=== PATIENT | female | born 1975 | race Caucasian/White ===

== ENCOUNTER → 2016-11-03 | Outpatient (CLI) | payer BC ==
[2016-11-03 19:05] LABS: Follicle Stimulating Hormone 2.1 mIU/mL
== END | disposition home or self-care (01) ==
LOC: MMGSC 14:16
PROVIDERS: ATTEND Family Medicine
DX: N95.1 Menopausal and female climacteric states (principal)
CPT/HCPCS: 36415; 83001; 83002; 84439; 84443

== ENCOUNTER → 2017-01-03 | Outpatient (CLI) | payer BC ==
--- NOTE | 2017-01-05 08:56 | MM ---
Reason for exam: screening (asymptomatic). Last mammogram was performed 2 years and 9 months ago. Physical Findings: A clinical breast exam by your physician is recommended on an annual basis and results should be correlated with mammographic findings. MG 3D Screening Mammo W/Cad Bilateral CC and MLO view(s) were taken. Prior study comparison: April 18, 2014, bilateral MG screening mammo w CAD. September 26, 2013, right breast MG diagnostic mammo RT w CAD. The breast tissue is extremely dense which could obscure a lesion on mammography. Scattered regional punctate calcifications are unchanged, greater in the right breast. No significant changes when compared with prior studies. ASSESSMENT: Negative, BI-RAD 1 RECOMMENDATION: Routine screening mammogram of both breasts in 1 year.
== END | disposition home or self-care (01) ==
LOC: RADMAMWWP 13:44
PROVIDERS: ATTEND Family Medicine
DX: Z12.31 Encounter for screening mammogram for malignant neoplasm of breast (principal)
CPT/HCPCS: 77063; G0202

== ENCOUNTER → 2017-05-16 | Outpatient (CLI) | payer BC ==
[2017-05-16 18:57] LABS: ALT 22 U/L (9-52); AST 26 U/L (14-36); Albumin 4.5 g/dL (3.5-5.0); Alkaline Phosphatase 55 U/L (38-126); Anion Gap 11 mmol/L; Blood Urea Nitrogen 11 mg/dL (7-17); Calcium 9.9 mg/dL (8.4-10.2); Carbon Dioxide 28 mmol/L (22-30); Chloride 101 mmol/L (98-107); Creatine Kinase 83 U/L (30-135); Glucose 84 mg/dL (74-99); Potassium 3.7 mmol/L (3.5-5.1); Sodium 140 mmol/L (137-145); Total Bilirubin 0.3 mg/dL (0.2-1.3); Total Protein 7.4 g/dL (6.3-8.2)
[2017-05-16 18:59] LABS: Basophils % (A) 0 %; Eosinophils # (A) 0.1 k/uL (0-0.7); Eosinophils % (A) 2 %; HCT 38.8 % (34.0-46.0); HGB 12.1 gm/dL (11.4-16.0); Lymphocytes # (A) 0.8 k/uL (1.0-4.8); Lymphocytes % (A) 17 %; MCH 29.3 pg (25.0-35.0); MCHC 31.3 g/dL (31.0-37.0); MCV 93.8 fL (80.0-100.0); Mean Platelet Volume 7.3; Monocytes # (A) 0.3 k/uL (0-1.0); Monocytes % (A) 7 %; Neutrophils # (A) 3.3 k/uL (1.3-7.7); Neutrophils % (A) 73 %; Platelet Count 202 k/uL (150-450); RBC 4.14 m/uL (3.80-5.40); RDW 12.8 % (11.5-15.5); WBC 4.5 k/uL (3.8-10.6)
[2017-05-16 19:10] LABS: T4, Free (Free Thyroxine) 0.74 ng/dL (0.78-2.19)
[2017-05-17 01:06] LABS: Rheumatoid Factor 6 IU/mL (0-15)
[2017-05-17 01:15] LABS: Vitamin D 25 Hydroxy 20.2 ng/mL (30.0-100.0)
[2017-05-18 13:07] LABS: HLA B27 NEGATIVE
== END | disposition home or self-care (01) ==
LOC: MMGSC 15:29
PROVIDERS: ATTEND Family Medicine
DX: M25.50 Pain in unspecified joint (principal); R53.83 Other fatigue; M54.5 Low back pain; M79.1 Myalgia; R20.9 Unspecified disturbances of skin sensation
CPT/HCPCS: 36415; 80053; 82306; 82550; 82607; 84439; 84443; 85025; 86038; 86431; 86812; 87086

== ENCOUNTER → 2017-07-27 | Outpatient (CLI) | payer BC ==
--- NOTE | 2017-07-27 14:31 | MR ---
EXAMINATION TYPE: MR brain wo/w con DATE OF EXAM: 07/27/2017 COMPARISON: 03/16/2016 HISTORY: Headache TECHNIQUE: Multiplanar, multisequence images of the brain and brainstem is performed without and with IV contras t, utilizing 5 mL intravenous Gadavist . FINDINGS: Diffusion weighted images demonstrate no evidence of a recent infarct or other diffusion ab normality. There is no extra-axial fluid collection or significant white matter signal abnormality. The ventricular system and cisternal spaces are normal in size and appearance. The brain volume is age appropriate. Midline structures demonstrate normal morphology. The craniocervical junction appears within normal limits. Post contrast images demonstrate no abnormal enhancement. Changes of chronic sinusitis are noted. IMPRESSION: 1. No acute process. 2. Changes of mild chronic sinusitis.
== END | disposition home or self-care (01) ==
LOC: RADMRIMAIN 13:14
PROVIDERS: ATTEND Psychiatry & Neurology Neurology
DX: R51 Headache (principal); R20.2 Paresthesia of skin
CPT/HCPCS: 70553; A9581

== ENCOUNTER → 2017-09-09 | Outpatient (CLI) | payer BC | END | disposition home or self-care (01) | LOC: LABWHC1 08:20 | PROVIDERS: ATTEND Psychiatry & Neurology Neurology | DX: G62.9 Polyneuropathy, unspecified (principal) | CPT/HCPCS: 36415; 82607; 82947 ==

== ENCOUNTER → 2017-09-26 | Outpatient (CLI) | payer BC ==
--- NOTE | 2017-09-26 16:10 | MR ---
EXAMINATION TYPE: MR cervical spine wo con DATE OF EXAM: 09/26/2017 COMPARISON: NONE HISTORY: Pain, Tingling, Numbness. TECHNIQUE: Multiplanar, multisequence images of the cervical spine were acquired. C2-C3: No evidence for degenerative disc disease. No disc bulge/herniation or protrusion. No Canal stenosis. Foramina are patent bilaterally. C3-C4: No evidence for degenerative disc disease. No disc bulge/herniation or protrusion. No Canal stenosis. Foramina are patent bilaterally. C4-C5: No evidence for degenerative disc disease. No disc bulge/herniation or protrusion. No Canal stenosis. Foramina are patent bilaterally. C5-C6: Central disc bulging with mild effacement of the thecal sac but no canal stenosis or foraminal encroachment.. C6-C7: No evidence for degenerative disc disease. No disc bulge/herniation or protrusion. No Canal stenosis. Foramina are patent bilaterally. C7-T1: No evidence for degenerative disc disease. No disc bulge/herniation or protrusion. No Canal stenosis. Foramina are patent bilaterally. Cervical segments are intact. There is normal alignment. Cervical spinal cord is of normal signal. Craniovertebral junction relationships are within normal limits. Sagittal disc bulging at T3-T4. IMPRESSION: 1. There is mild central disc bulging C5-C6 with no canal stenosis or foraminal encroachment. No foca l herniation. 2. Sagittal disc bulging T3-T4 not included on the axial images.
== END | disposition home or self-care (01) ==
LOC: RADMRIMAIN 14:16
PROVIDERS: ATTEND Psychiatry & Neurology Neurology
DX: M50.222 Other cervical disc displacement at C5-C6 level (principal)
CPT/HCPCS: 72141

== ENCOUNTER → 2018-04-10 | Outpatient (CLI) | payer BC ==
--- NOTE | 2018-04-12 16:37 | MM ---
Reason for exam: screening (asymptomatic). Last mammogram was performed 1 year and 3 months ago. MG 3D Screening Mammo W/Cad Bilateral CC and MLO view(s) were taken. Prior study comparison: January 03, 2017, bilateral MG 3d screening mammo w/cad. April 18, 2014, bilateral MG screening mammo w CAD. The breast tissue is extremely dense which could obscure a lesion on mammography. There is a distortion in the left upper posterior breast seen on the MLO view. There are benign-appearing regional round bilateral breast calcifications. ASSESSMENT: Incomplete: need additional imaging evaluation, BI-RAD 0 RECOMMENDATION: Ultrasound of the left breast.
== END | disposition home or self-care (01) ==
LOC: RADMAMWWP 06:59
PROVIDERS: ATTEND Family Medicine
DX: Z12.31 Encounter for screening mammogram for malignant neoplasm of breast (principal)
CPT/HCPCS: 77063; 77067

== ENCOUNTER → 2018-04-20 | Outpatient (CLI) | payer BC ==
--- NOTE | 2018-04-22 11:45 | USB ---
Reason for exam: additional evaluation requested from abnormal screening. Physical Findings: Nurse Summary: a left breast palpable mass at 11o'clock 0.5 x 1 cm movable and tender. US Breast Workup Limited LT Left limited breast ultrasound including focal area of concern, retroareolar and axilla demonstrates No solid or cystic lesion seen including area of concern with BB marker. Dense tissue seen throughout. These results were verbally communicated with the patient and result sheet given to the patient on 04/20/18. ASSESSMENT: Probably benign, BI-RAD 3 RECOMMENDATION: Follow-up diagnostic mammogram of the left breast in 6 months.
== END | disposition home or self-care (01) ==
LOC: RADUSWWP 13:43
PROVIDERS: ATTEND Family Medicine
DX: R92.8 Other abnormal and inconclusive findings on diagnostic imaging of breast (principal)

== ENCOUNTER → 2018-11-14 | Outpatient (CLI) | payer BC ==
--- NOTE | 2018-11-14 09:04 | MM ---
Reason for exam: follow-up at short interval from prior study. Last mammogram was performed 7 months ago. Physical Findings: Nurse did not find any significant physical abnormalities on exam. MG 3D Diag Mammo W/Cad LT CC, MLO, and ML view(s) were taken of the left breast. Prior study comparison: April 10, 2018, bilateral MG 3d screening mammo w/cad. January 03, 2017, bilateral MG 3d screening mammo w/cad. The breast tissue is extremely dense which could obscure a lesion on mammography. Finding: There are stable round, diffuse/scattered calcifications in the lower outer quadrant of the left breast. No significant changes in finding since April 10, 2018 and January 03, 2017. These results were verbally communicated with the patient and result sheet given to the patient on 11/14/18. ASSESSMENT: Benign, BI-RAD 2 RECOMMENDATION: Return to routine screening mammogram schedule for both breasts. Back on schedule.
== END | disposition home or self-care (01) ==
LOC: RADMAMWWP 08:10
PROVIDERS: ATTEND Family Medicine
DX: N63.20 Unspecified lump in the left breast, unspecified quadrant (principal); K59.00 Constipation, unspecified; R19.7 Diarrhea, unspecified
CPT/HCPCS: 77061; 77065; 87045; 87046; 87324; 87328; 87329

== ENCOUNTER → 2020-03-17 | Outpatient (CLI) | payer BC ==
--- NOTE | 2020-03-17 10:31 | MM ---
Reason for exam: additional evaluation requested from prior study. Last mammogram was performed 1 year and 4 months ago. Physical Findings: Nurse did not find any significant physical abnormalities on exam. MG 3D Diag Mammo W/Cad [facility] Bilateral CC and MLO view(s) were taken. Prior study comparison: November 14, 2018, left breast MG 3d diag mammo w/cad LT. April 10, 2018, bilateral MG 3d screening mammo w/cad. The breast tissue is heterogeneously dense. This may lower the sensitivity of mammography. No significant new findings when compared with previous films. These results were verbally communicated with the patient and result sheet given to the patient on 03/17/20. ASSESSMENT: Benign, BI-RAD 2 RECOMMENDATION: Routine screening mammogram of both breasts in 1 year.
== END | disposition home or self-care (01) ==
LOC: RADMAMWWP 07:18
PROVIDERS: ATTEND Family Medicine
DX: R92.8 Other abnormal and inconclusive findings on diagnostic imaging of breast (principal)
CPT/HCPCS: 77062; 77066

== ENCOUNTER → 2020-05-20 | Outpatient (CLI) | payer BC ==
[2020-05-21 03:14] LABS: Gliadin AB IgA, Deaminated NEGATIVE (NEGATIVE); Gliadin AB IgA, Unit <0.2 U/mL; Gliadin AB IgG, Deaminated NEGATIVE (NEGATIVE)
[2020-05-21 03:45] LABS: ALT 45 U/L (8-44); AST 34 U/L (13-35); African American GFR (CKD) 119.6 (60.0-200.0); Albumin/Globulin Ratio 1.72 (1.60-3.17); Alkaline Phosphatase 48 U/L (41-126); BUN/Creat Ratio 15.71 Ratio (12.00-20.00); C Reactive Protein <0.4 mg/dL (0.0-0.8); Calcium 9.8 mg/dL (8.7-10.3); Carbon Dioxide 24.9 mmol/L (21.6-31.8); Chloride 102 mmol/L (96-109); Globulin 2.5 g/dL (1.6-3.3); Glucose 78 mg/dL (70-110); Non-African American GFR(CKD) 103.2 (60.0-200.0); Potassium 3.9 mmol/L (3.5-5.5); Sodium 139 mmol/L (135-145); Total Bilirubin 0.4 mg/dL (0.3-1.2); Total Protein 6.8 g/dL (6.2-8.2)
[2020-05-21 04:23] LABS: HCT 39.9 % (37.2-46.3); HGB 12.5 g/dL (12.0-15.0); MCH 30.9 pg (27.0-32.0); MCHC 31.3 g/dL (32.0-37.0); MCV 98.5 fL (80.0-97.0); Mean Platelet Volume 11.4 fL (9.5-12.2); Platelet Count 232 X 10*3/uL (140-440); RBC 4.05 X 10*6/uL (4.10-5.20); RDW 13.2 % (11.5-14.5); WBC 5.68 X 10*3/uL (4.50-10.00)
[2020-05-21 07:24] LABS: Erythrocyte Sedimentation Rate 6 mm/Hr (0-20)
== END | disposition home or self-care (01) ==
LOC: LABWHC1 15:02
PROVIDERS: ATTEND Physician Assistant
DX: R19.7 Diarrhea, unspecified (principal)
CPT/HCPCS: 36415; 80053; 83516; 85027; 85652; 86140

== ENCOUNTER 2020-05-28 08:07 | Day surgery (SDC) | payer BC ==
[2020-05-25 12:40] VITALS: BMI 25.0
[~2020-05-28 08:07] MED LIST: LACTATED RINGERS 1,000 ML IV SCH; LIDOCAINE 1% (10MG/ML) FOR IV START INTRADERMA PRN
[2020-05-28 08:37] VITALS: TEMP 98.7
[2020-05-28] MEDS ORDERED: PROPOFOL 10 MG/ML 20 ML VIAL IV ONE (09:57)
[2020-05-28 10:43] VITALS: RESP 16
--- NOTE | 2020-05-28 10:48 | P.PCN ---
Date of Procedure: 05/28/20 Description of Procedure: Brief history: Patient is a pleasant 45-year-old female presenting for outpatient EGD and colonoscopy for evaluation of heartburn and diarrhea. Patient reports frequent heartburn 3-4 times per week. She has frequent loose bowel movements with associated urgency and episodes of incontinence. She also complains of nighttime bowel movements. Procedure performed: Esophagogastroduodenoscopy with biopsy Colonoscopy with biopsy Estimated blood loss: Minimal. Preoperative diagnosis: Heartburn, diarrhea Anesthesia: [facility] [place] Procedure: After informed consent was obtained from the patient was brought into the endoscopy unit and IV sedation was administered by anesthesia under continuous monitoring. Initially upper endoscopy was done. The Olympus GF 190 video endoscope was inserted into the mouth and esophagus intubated without any difficulty and was gradually advanced into the stomach and duodenum and carefully examined. The bulb and second part of the duodenum appeared normal with biopsies taken. The scope was then withdrawn into the stomach adequately insufflated with air and upon careful examination the antrum and body, cardia and fundus appeared normal, except for some mild punctate erythema in the antrum body suggestive of gastritis with biopsies taken. The scope was then withdrawn into the esophagus. The GE junction was located at 36 cm to the incisors and biopsied. A small 1 cm hiatal hernia was noted . It appeared regular with no erythema erosions or ulcerations. Rest of the esophagus appeared normal. Patient tolerated the procedure well. At this time the patient continued to remain sedation. Initial digital rectal examination was normal. Olympus CF 190 video colonoscope was then inserted into the rectum and gradually advanced to the cecum without any difficulty. Careful examination was performed as the scope was gradually being withdrawn. The prep was excellent. The cecum, ascending colon, transverse colon, descending colon, sigmoid colon and rectum appeared normal, With biopsies of the right colon, left colon and a normal-appearing terminal ileum. Retroflexion was performed in the rectum and no lesions were noted, Low-grade internal. Patient tolerated the procedure well. Impression: 1. Mild gastritis. Biopsies of the duodenum, antrum body and GE junction. Small hiatal hernia. 2. Normal-appearing colon from rectum to cecum with normal-appearing terminal ileum and biopsies taken of the terminal ileum, right colon and left colon. Low-grade internal hemorrhoids. Recommendations: Findings of this examination were discussed with the patient as well as her family. Okay to resume diet. Okay to resume medications. Await pathology from biopsies. Follow up in the GI clinic as scheduled for results of biopsies and further management
[2020-05-28 11:02] VITALS: PULSE 58
[2020-05-28 11:03] VITALS: BP 120/77
== END 2020-05-28 11:47 | disposition home or self-care (01) ==
LOC: ORWHC2ENDO 08:07
PROVIDERS: ATTEND Internal Medicine
DX: K31.9 Disease of stomach and duodenum, unspecified (principal); K44.9 Diaphragmatic hernia without obstruction or gangrene; K64.8 Other hemorrhoids; Z79.899 Other long term (current) drug therapy; Z88.1 Allergy status to other antibiotic agents; Z88.0 Allergy status to penicillin; Z88.8 Allergy status to other drugs, medicaments and biological substances; Z90.710 Acquired absence of both cervix and uterus; Z98.890 Other specified postprocedural states
CPT/HCPCS: 88305; 45380; 43239; J2704

== ENCOUNTER → 2021-04-16 | Outpatient (CLI) | payer BC ==
--- NOTE | 2021-04-16 13:00 | MM ---
Reason for exam: screening (asymptomatic). Last mammogram was performed 1 year and 1 month ago. Physical Findings: A clinical breast exam by your physician is recommended on an annual basis and results should be correlated with mammographic findings. MG 3D Screening Mammo W/Cad Bilateral CC and MLO view(s) were taken. Prior study comparison: March 17, 2020, bilateral MG 3d diag mammo w/cad [facility]. November 14, 2018, left breast MG 3d diag mammo w/cad LT. The breast tissue is extremely dense which could obscure a lesion on mammography. There are benign appearing round calcifications bilaterally. There is no discrete abnormality. ASSESSMENT: Incomplete: need additional imaging evaluation, BI-RAD 0 RECOMMENDATION: Ultrasound of the right breast. (palpable benign extremely dense tissue) [facility] will attempt to contact patient to return for ultrasound.
== END | disposition home or self-care (01) ==
LOC: RADMAMWWP 06:56
PROVIDERS: ATTEND Family Medicine
DX: Z12.31 Encounter for screening mammogram for malignant neoplasm of breast (principal)
CPT/HCPCS: 77063; 77067

== ENCOUNTER → 2021-04-21 | Outpatient (CLI) | payer BC ==
--- NOTE | 2021-04-22 09:51 | USB ---
Reason for exam: additional evaluation requested from abnormal screening. Physical Findings: Nurse Summary: Patient states she feels like she has a rock in her right beast when she lays on her stomach, complains of right breast generalized tenderness and bilateral nipple tenderness x 2 months, states bilateral nipple discharge brownish/white x 2 recently when pressing on her breasts (nurse TM). US Breast Workup Limited [facility] Right complete breast ultrasound includes all four quadrants, the retroareolar region and axilla. Finding demonstrates dense tissue only and prominent duct posterior nipple. Left limited breast ultrasound including focal area of concern, retroareolar and axilla demonstrates prominent duct posterior nipple. These results were verbally communicated with the patient and result sheet given to the patient on 04/21/21. ASSESSMENT: Benign, BI-RAD 2 RECOMMENDATION: Ultrasound of the right breast in 6 months. Manage patient on a clinical basis.
== END | disposition home or self-care (01) ==
LOC: RADUSWWP 14:36
PROVIDERS: ATTEND Family Medicine
DX: R92.8 Other abnormal and inconclusive findings on diagnostic imaging of breast (principal)

== ENCOUNTER → 2021-06-07 | Outpatient (CLI) | payer BC ==
--- NOTE | 2021-06-07 10:05 | CT ---
EXAMINATION TYPE: CT abdomen pelvis w con DATE OF EXAM: 06/07/2021 COMPARISON: NONE HISTORY: 46-year-old female R10.33, Periumbilical pain TECHNIQUE: Contiguous axial scanning of the abdomen and pelvis following administration of 100 ml Iso artemio 300 IV contrast. Delayed images through the kidneys and coronal/sagittal reconstructions perform ed. CT DLP: 471.4 mGycm Automated exposure control for dose reduction was used. FINDINGS: Heart normal size without pericardial effusion. Mild dependent atelectasis posterior lower lungs. No pleural effusion. Tiny hiatal hernia noted. Small amount of contrast in the distal esophagus on the delayed scan. Liver borderline enlarged at 17.7 cm. No focal lesion or biliary ductal dilatation. Portal venous sys tem is patent. Gallbladder, adrenal glands, kidneys, spleen with tiny inferior hilar splenule, and pancreas appear w ithin normal limits. No dilated small bowel, free fluid, or free air. No mesenteric or retroperitoneal lymphadenopathy. Normal appendix in the right lower quadrant. Oral contrast progressed to the splenic flexure of the c olon. Mild overall snowboarding. Occasional left-sided colonic diverticulosis. No robby pericolonic i nflammatory change. Bladder is urine distended. A few scattered pelvic phleboliths. Uterus surgically absent. Both ovarie s are visualized with a 2.0 cm dominant follicle or functional cyst of left ovary. No abnormal fluid collection in the pelvis or pelvic lymphadenopathy. Bones: Facet arthropathy lower lumbar spine. IMPRESSION: 1. TINY HIATAL HERNIA. THE DELAYED SCAN SHOWS SMALL AMOUNT OF CONTRAST IN THE DISTAL ESOPHAGUS SUGGES TING GASTROESOPHAGEAL REFLUX OR ESOPHAGEAL DYSMOTILITY. CLINICALLY CORRELATE. 2. BORDERLINE SIZED LIVER AT 17.7 CM. 3. SCATTERED LEFT-SIDED CLONIC DIVERTICULOSIS. 4. STATUS POST HYSTERECTOMY WITH A 2.0 CM DOMINANT FOLLICLE OR FUNCTIONAL CYST OF LEFT OVARY.
== END | disposition home or self-care (01) ==
LOC: RADCTMAIN 07:17
PROVIDERS: ATTEND Family Medicine
DX: K44.9 Diaphragmatic hernia without obstruction or gangrene (principal); K57.30 Diverticulosis of large intestine without perforation or abscess without bleeding; N83.8 Other noninflammatory disorders of ovary, fallopian tube and broad ligament
CPT/HCPCS: 74177; Q9967

== ENCOUNTER → 2022-04-22 | Outpatient (CLI) | payer BC ==
--- NOTE | 2022-04-22 10:10 | MM ---
Reason for Exam: Screening (asymptomatic). Last screening mammogram was performed 12 month(s) ago. Patient History: Menarche at age 11. First Full-Term at age 20. Hysterectomy at age 25. Risk Values: Odalis 5 year model risk: 0.8%. NCI Lifetime model risk: 8.2%. Prior Study Comparison: 11/14/2018 Left Diagnostic Mammogram, [facility]. 03/17/2020 Bilateral Diagnostic Mammogram, [facility]. 04/16/2021 Bilateral Screening Mammogram, [facility]. Tissue Density: The breast tissue is heterogeneously dense. This may lower the sensitivity of mammography. Findings: Analyzed By CAD. Pattern appears symmetrical and stable. Benign scattered calcifications are present bilaterally. No suspicious groups of microcalcifications, spiculated or lobular masses, architectural distortion or other secondary signs of malignancy are mammographically apparent. Overall Assessment: Benign, BI-RAD 2 Management: Screening Mammogram of both breasts in 1 year. A negative mammogram report should not preclude additional follow up of suspicious palpable abnormalities. Patient should continue monthly self breast exam. A clinical breast exam by your physician is recommended on an annual basis and results should be correlated with mammographic findings. Electronically signed and approved by: Conner Paul D.O. Radiologis
== END | disposition home or self-care (01) ==
LOC: RADMAMWWP 07:24
PROVIDERS: ATTEND Family Medicine
DX: Z12.31 Encounter for screening mammogram for malignant neoplasm of breast (principal)
CPT/HCPCS: 77063; 77067

== ENCOUNTER → 2022-09-14 | Outpatient (CLI) | payer BC ==
[2022-09-14 08:52] LABS: T4, Free (Free Thyroxine) 1.36 ng/dL (0.78-2.19)
== END | disposition home or self-care (01) ==
LOC: LABWHC1 07:07
PROVIDERS: ATTEND Family Medicine
DX: E03.9 Hypothyroidism, unspecified (principal)
CPT/HCPCS: 36415; 84439; 84443

== ENCOUNTER → 2023-04-24 | Outpatient (CLI) | payer BC ==
--- NOTE | 2023-04-24 22:41 | MM ---
Reason for Exam: Screening (asymptomatic). Last screening mammogram was performed 12 month(s) ago. Patient History: Menarche at age 11. First Full-Term at age 20. Hysterectomy at age 25. Risk Values: Odalis 5 year model risk: 0.9%. NCI Lifetime model risk: 8.0%. Prior Study Comparison: 03/17/2020 Bilateral Diagnostic Mammogram, [facility]. 04/16/2021 Bilateral Screening Mammogram, [facility]. 04/22/2022 Bilateral MG 3D screening mammo w/cad, [facility]. Tissue Density: The breast tissue is heterogeneously dense. This may lower the sensitivity of mammography. Findings: Analyzed By CAD. The pattern is symmetrical. Multiple scattered benign punctate calcifications are present. No significant interval changes are evident. No suspicious groups of microcalcifications, spiculated or lobular masses, architectural distortion or other secondary signs of malignancy are mammographically apparent. Overall Assessment: Benign, BI-RAD 2 Management: Screening Mammogram of both breasts in 1 year. A negative mammogram report should not preclude additional follow up of suspicious palpable abnormalities. Patient should continue monthly self breast exam. A clinical breast exam by your physician is recommended on an annual basis and results should be correlated with mammographic findings. Electronically signed and approved by: Conner Paul D.O. Radiologis
== END | disposition home or self-care (01) ==
LOC: RADMAMWWP 07:49
PROVIDERS: ATTEND Family Medicine
DX: Z12.31 Encounter for screening mammogram for malignant neoplasm of breast (principal)
CPT/HCPCS: 77063; 77067

== ENCOUNTER → 2023-05-16 | Outpatient (CLI) | payer BC | END | disposition home or self-care (01) | LOC: LABWHC1 09:51 | PROVIDERS: ATTEND Nurse Practitioner | DX: Z51.81 Encounter for therapeutic drug level monitoring (principal); Z79.899 Other long term (current) drug therapy | CPT/HCPCS: 36415; 80164 ==

== ENCOUNTER → 2024-04-25 | Outpatient (CLI) | payer BC ==
--- NOTE | 2024-04-25 08:20 | MM ---
Reason for Exam: Screening (asymptomatic). Last screening mammogram was performed 12 month(s) ago. Patient History: Menarche at age 11. First Full-Term at age 20. Hysterectomy at age 25. Risk Values: Odalis 5 year model risk: 0.9%. NCI Lifetime model risk: 7.9%. Prior Study Comparison: 04/16/2021 Bilateral Screening Mammogram, [facility]. 04/22/2022 Bilateral MG 3D screening mammo w/cad, [facility]. 04/24/2023 Bilateral MG 3D screening mammo w/cad, [facility]. Tissue Density: The breasts are extremely dense, which lowers the sensitivity of mammography. Findings: Analyzed By CAD. Right breast: There is no suspicious group of microcalcifications or new suspicious mass. Benign-appearing calcifications right breast. Left breast: There is no suspicious group of microcalcifications or new suspicious mass. Benign-appearing calcifications left breast. Overall Assessment: Benign, BI-RAD 2 Management: Screening Mammogram of both breasts in [address] [facility] will attempt to contact patient to return for supplemental views and ultrasound if indicated. Patient should continue monthly self-breast exams. A clinical breast exam by your physician is recommended on an annual basis. This exam should not preclude additional follow-up of suspicious palpable abnormalities. Note on Odalis scores and lifetime risk: 1. A Odalis score greater than 3% is considered moderate risk. If this is the case, consider specialist referral to assess eligibility for a risk reducing agent. 2. If overall lifetime risk for the development of breast cancer is 20% or higher, the patient may qualify for future screening with alternating mammogram and breast MRI. [facility], , 04/25/2024 8:17 AM. Electronically signed and approved by: Triston Harris DO
== END | disposition home or self-care (01) ==
LOC: RADMAMWWP 07:45
PROVIDERS: ATTEND Family Medicine
DX: Z12.31 Encounter for screening mammogram for malignant neoplasm of breast (principal); R92.343 Mammographic extreme density, bilateral breasts; R92.1 Mammographic calcification found on diagnostic imaging of breast
CPT/HCPCS: 77063; 77067

== ENCOUNTER → 2024-06-12 | Outpatient (CLI) | payer BC ==
--- NOTE | 2024-06-12 08:14 | MM ---
Reason for Exam: Clinical finding. Last screening mammogram was performed 2 month(s) ago. Indicated Problems: Lump or thickening of the right side for 1 Week(s). Patient History: Menarche at age 11. First Full-Term at age 20. Hysterectomy at age 25. Risk Values: Odalis 5 year model risk: 0.9%. NCI Lifetime model risk: 7.9%. Prior Study Comparison: 04/22/2022 Bilateral MG 3D screening mammo w/cad, [facility]. 04/24/2023 Bilateral MG 3D screening mammo w/cad, [facility]. 04/25/2024 Bilateral MG 3D screening mammo w/cad, [facility]. Tissue Density: Right: The breasts are extremely dense, which lowers the sensitivity of mammography. Findings: Analyzed By CAD. There are regional tiny benign-appearing round calcifications in the right breast redemonstrated. No obvious new mass or worrisome cluster of microcalcification in the right breast. Overall Assessment: Incomplete: need additional imaging evaluation, BI-RAD 0 Management: Diagnostic Breast Ultrasound of the right breast. Targeted ultrasound right breast. Results were given to the patient verbally at the time of exam. Patient should continue monthly self-breast exams. A clinical breast exam by your physician is recommended on an annual basis. This exam should not preclude additional follow-up of suspicious palpable abnormalities. Note on Odalis scores and lifetime risk: 1. A Odalis score greater than 3% is considered moderate risk. If this is the case, consider specialist referral to assess eligibility for a risk reducing agent. 2. If overall lifetime risk for the development of breast cancer is 20% or higher, the patient may qualify for future screening with alternating mammogram and breast MRI. [facility], , 06/12/2024 8:11 AM. Electronically signed and approved by: Murray Turner M.D.
--- NOTE | 2024-06-12 11:41 | USB ---
Reason for Exam: Clinical finding. Patient History: Menarche at age 11. First Full-Term at age 20. Hysterectomy at age 25. Risk Values: Odalis 5 year model risk: 0.9%. NCI Lifetime model risk: 7.9%. Prior Study Comparison: 04/22/2022 Bilateral MG 3D screening mammo w/cad, [facility]. 04/24/2023 Bilateral MG 3D screening mammo w/cad, [facility]. 04/25/2024 Bilateral MG 3D screening mammo w/cad, [facility]. Findings: The area of palpable concern of the right breast, the axilla of the right breast and the retroareolar of the right breast were scanned. Targeted ultrasound shows ill-defined echogenic area in the o'clock position 2 cm distance from nipple with possible peripheral vascularity. There is suggestion of a focal calcification and measures near 1.7 cm. Behind the nipple there is a prominent duct identified. Scanning of the axilla shows no worrisome mass or adenopathy. Overall Assessment: Suspicious, BI-RAD 4 Management: Ultrasound Core Biopsy of the right breast. Tissue sampling is advised for the palpable corresponding to ill-defined heterogeneous hypoechoic area at 8:00 position. A clinical breast exam by your physician is recommended on an annual basis and results should be correlated with mammographic findings. This exam should not preclude additional follow-up of suspicious palpable abnormalities. Results were given to the patient verbally at the time of exam. [facility], , 06/12/2024 8:40 AM. Electronically signed and approved by: Murray Turner M.D.
== END | disposition home or self-care (01) ==
LOC: RADMAMWWP 07:41
PROVIDERS: ATTEND Family Medicine
DX: N64.4 Mastodynia (principal); N63.13 Unspecified lump in the right breast, lower outer quadrant; R92.341 Mammographic extreme density, right breast; R92.1 Mammographic calcification found on diagnostic imaging of breast
CPT/HCPCS: 77061; 77065

== ENCOUNTER → 2024-06-19 | Day surgery (SDC) | payer BC ==
--- NOTE | 2024-06-19 11:49 | USB ---
Risk Values: Odalis 5 year model risk: 0.9%. NCI Lifetime model risk: 7.9%. Findings: A complete US of all four quadrants of the breast and retro-areolar region were reviewed. No solid or cystic masses are identified.. Numerous dilated ducts are identified. The area of concern previously mentioned at the 8:00 position right breast could not be replicated. Therefore, biopsy could not be performed. Recommend MRI.A complete US of all four quadrants of the breast and retro-areolar region were reviewed. No solid or cystic masses are identified. The area of concern on the prior ultrasound could not be replicated on today's exam. Numerous dilated breast ducts were seen. Given the appearance of the prior ultrasound and MRI is recommended. Management: Diagnostic Breast MRI of the right breast. A clinical breast exam by your physician is recommended on an annual basis and results should be correlated with mammographic findings. This exam should not preclude additional follow-up of suspicious palpable abnormalities. Results were given to the patient verbally at the time of exam. [facility], , 06/19/2024 11:46 AM. Electronically signed and approved by: Napoleon Salazar M.D. Radiologis
== END ==
LOC: RADUSWWP 09:28
PROVIDERS: ATTEND Surgery
DX: N63.13 Unspecified lump in the right breast, lower outer quadrant (principal); Z53.8 Procedure and treatment not carried out for other reasons

== ENCOUNTER → 2024-07-17 | Outpatient (CLI) | payer BC ==
--- NOTE | 2024-07-19 12:21 | BMR ---
EXAM DATE: 07/17/2024 EXAM DESCRIPTION: MRI-Breast Bilat (W/WO Contrast) INDICATION: Diagnostic MRI.Abnormal mammogram and ultrasound. COMPARISON: Comparison is made with relevant prior imaging in PACS. CONTRAST: 6 cc of Gadobutrol TECHNIQUE: Multiplanar MRI imaging of both breasts was performed with a dedicated breast coil, before and after intravenous administration of gadolinium contrast, using the standard breast mass protocol. Computer-aided detection was used to aid in interpretation. Study was performed at [facility] with Radiologic interpretation by [facility]. FINDINGS: General breast composition: The breast is heterogeneously dense Background parenchymal enhancement: Mild FINDINGS: Right Breast: Review of the dynamic contrast-enhanced series shows no rapidly enhancing masses, suspicious enhancement patterns or other abnormalities. The T2 weighted series shows no abnormality. Left Breast: Review of the dynamic contrast-enhanced series shows no rapidly enhancing masses, suspicious enhancement patterns or other abnormalities. The T2 weighted series shows no abnormality. Miscellaneous findings:Small hiatal hernia IMPRESSION: No MRI evidence of malignancy in either breast. More specifically no abnormality seen in the area of palpable concern at 8 o'clock in the right breast. Ultrasound-guided biopsy is recommended per report side report. BI-RADS Category4- Suspicious A small hiatal hernia is incidentally seen. MTDD
== END | disposition home or self-care (01) ==
LOC: RADMRIMAIN 15:02
PROVIDERS: ATTEND Family Medicine
DX: N63.13 Unspecified lump in the right breast, lower outer quadrant (principal); R92.333 Mammographic heterogeneous density, bilateral breasts
CPT/HCPCS: 77049; A9585

== ENCOUNTER → 2024-08-01 | Outpatient (CLI) | payer BC ==
[2024-08-01 14:15] VITALS: BP 110/71; PULSE 81; RESP 16; TEMP 97.6
--- NOTE | 2024-08-01 14:49 | P.GSCN ---
History of Present Illness Consult date: 08/01/24 Reason for Consult: abnormla right breast ultrasound Requesting physician: Ary Marion History of present illness: Erin is a 49 year old female seen in consultation for Dr. Lyla Mathew. She had a bilateral screening mammogram done on 04-25-24 which was BIRAD 2. The breast were noted to be extremely dense. She felt a marble in her right bresat in Apr. and this led to the additional workup. She then had a right breast mammogram and ultrasound on 06-12-24 which showed an ill-defined echogenic area in the right breast for which ultrasound core biopsy was recommended. Additionally behind the nipple there was a prominent duct identified. 06-19-2024 had an attempt at an ultrasound core biopsy. On this examination no solid or cystic mass were identified. An MRI of the breast was recommended. A bilateral breast MRI was performed on 07-17-2024 and this was considered to be category 4 suspicious no lesions were seen on the MRI but there was recommendation of an ultrasound-guided biopsy recommended at the 8 o'clock position of the right breast. The patient still feels something of concern in the right breast, it is pain is present with palpation. The pain is both aching and sharp in nature. It spreads to her nipple. It is not constant but only with touching it. She did have some nipple discharge in mid Apr. it was yellow brown in nature. It has stopped. She has not had any trauma or infection in her breast. She has not had any surgery on her breast. CAffiene: drinks decaf coffee chocolate: occasional nicotine: none BCP: none hormones: none She had a hysterectomy at 26, left her ovaries, this was done for bleeding/endometriosis Family History: brother: leukemia Hormonal History: menarche: 11 [id number], age at first live : 20, breast fed: no hysterectomy at 26; left ovaries Surgical History: hysterectomy knee arthroscopic deviated septum colonoscopy/endoscopy Medical History: fibromyalgia IBS bipolar II depression and anxiety Social History: nicotine: none alcohol: none drugs: none Review of Systems - Constitutional Reports as per HPI - EENT EENT Comment(s): left eye trauma/ blurred vision at times Ears: bilateral: decreased hearing, deny: tinnitus Ears, nose, mouth and throat: Reports dysphagia - Breasts bilateral: as per HPI - Cardiovascular Denies chest pain, Denies shortness of breath - Respiratory Denies cough, Denies 7 - Gastrointestinal Reports as per HPI, Reports constipation - Genitourinary Genitourinary: Denies dysuria, Denies hematuria Menstruation: Reports post hysterectomy - Musculoskeletal Reports as per HPI - Integumentary Reports pruritus - Neurological Neurologic Comment(s): migraines Denies headaches, Denies syncope - Psychiatric Reports as per HPI - Endocrine Reports fatigue - Hematologic/Lymphatic Denies easy bleeding, Denies easy bruising - Allergic/Immunologic Reports as per HPI, Reports seasonal allergies Past Medical History Past Medical History: Fibromyalgia, Thyroid Disorder Additional Past Medical History / Comment(s): fibromyalgia 2016 History of Any Multi-Drug Resistant Organisms: None Reported Past Surgical History: Hysterectomy, Orthopedic Surgery Additional Past Surgical History / Comment(s): right knee Past Anesthesia/Blood Transfusion Reactions: Postoperative Nausea & Vomiting (PONV) Past Psychological History: Anxiety, Bipolar, Depression Additional Psychological History / Comment(s): Bipolar 2 Smoking Status: Never smoker Past Alcohol Use History: None Reported Past Drug Use History: None Reported Medications and Allergies Home Medications Medication Instructions Recorded Confirmed Type Acetaminophen [Tylenol] 1 tab PO DAILY PRN 05/25/20 08/01/24 History Divalproex [Depakote] 1,000 mg PO DAILY 05/25/20 08/01/24 History Sertraline [Zoloft] 200 mg PO DAILY 05/25/20 08/01/24 History Turmeric Root Extract [Turmeric] 1,000 mg PO DAILY 05/25/20 08/01/24 History Levothyroxine Sodium [Synthroid] 50 mcg PO DAILY 06/13/24 08/01/24 History Pregabalin [Lyrica] 50 mg PO BID 06/13/24 08/01/24 History busPIRone HCl [Buspar] 10 mg PO BID 06/13/24 08/01/24 History Allergies Allergy/AdvReac Type Severity Reaction Status Date / Time cephalexin monohydrate Allergy Rash/Hives Verified 08/01/24 14:12 [From Keflex] paroxetine HCl [From Paxil] Allergy Swelling Verified 08/01/24 14:12 Penicillins Allergy Rash/Hives Verified 08/01/24 14:12 prochlorperazine edisylate Allergy Swelling Verified 08/01/24 14:12 [From Compazine] prochlorperazine maleate Allergy Swelling Verified 08/01/24 14:12 [From Compazine] duloxetine [From Cymbalta] AdvReac Nausea & Verified 08/01/24 14:12 Vomiting Surgical - Exam Vital Signs Temp Pulse Resp BP Pulse Ox 97.6 F 81 16 110/71 100 08/01/24 14:13 08/01/24 14:13 08/01/24 14:13 08/01/24 14:13 08/01/24 14:13 - General no distress - Eyes normal ocular movement - ENT no hearing loss - Neck trachea midline - Respiratory normal respiratory effort, clear to auscultation - Cardiovascular Rhythm: regular Heart Sounds: normal: S1, S2 - Abdomen Abdomen: soft, non tender, no guarding, no rigid, no rebound - Integumentary normal turgor - Neurologic no disoriented, no combative - Musculoskeletal normal gait, normal posture - Psychiatric oriented to time, oriented to person, oriented to place, speech is normal, memory intact Breast Exam: BRA: large inspection: Bilateral grade 2 ptosis Palpation: Right breast: Multi positional exam slight increased nodularity at the 8:00 periareolar region without a specific dominant solitary mass Right axilla: No adenopathy of concern Left breast: Multi positional exam fibrocystic changes no dominant masses or nodules of concern Left axilla: No adenopathy of concern Results Mammogram/ultrasound/MRI of the breast all personally reviewed and interpreted Assessment and Plan Assessment: Impression: Fibromyalgia Breast pain right breast consistent with area of increased nodularity as noted by patient Extremely dense breast Plan: This time we will have a repeat ultrasound-guided core biopsy of the right breast attempt if they are unable to see anything she will come back and see me again Appointment with medical oncology for possible chemoprophylaxis Follow-up after ultrasound-guided core biopsy and appointment with medical oncology If the patient is unable to have an ultrasound core biopsy would consider an FNA of the area of increased fullness in the right breast near the 8 o'clock p osition I have discussed this with the patient and her . They understand and want this to be worked up and resolved. CC: Dr. Marion
== END ==
LOC: WWCWWP 13:41
PROVIDERS: ATTEND Surgery
DX: M79.7 Fibromyalgia (principal); N64.4 Mastodynia; Z88.0 Allergy status to penicillin; Z88.1 Allergy status to other antibiotic agents; Z88.8 Allergy status to other drugs, medicaments and biological substances

== ENCOUNTER → 2024-08-15 | Day surgery (SDC) | payer BC ==
--- NOTE | 2024-08-29 11:05 | MM ---
Reason for Exam: Post Procedure Mammogram. Last screening mammogram was performed 4 month(s) ago. Patient History: Menarche at age 11. First Full-Term at age 20. Hysterectomy at age 25. 06/19/2024, US discontinued breast bx RT on the right side. Risk Values: Odalis 5 year model risk: 0.9%. NCI Lifetime model risk: 7.9%. Prior Study Comparison: 04/24/2023 Bilateral MG 3D screening mammo w/cad, [facility]. 04/25/2024 Bilateral MG 3D screening mammo w/cad, [facility]. 06/12/2024 Right MG 3D diag mammo w/cad RT, [facility]. Tissue Density: Right: The breasts are extremely dense, which lowers the sensitivity of mammography. Pathology Description: Location: 8 o'clock. Marker Left Behind. Needle Type: Mammotome Cores: 7 Skin Nicks: 1 Gauge: 13 The procedure of ultrasound guided core biopsy was explained to the patient. Benefits, alternatives, and risks were discussed. An informed consent was then obtained. The patient was placed in supine positioning for imaging and for the procedure. The overlying skin was prepped and draped in usual sterile fashion. Lidocaine buffered with bicarbonate was used as anesthetic into the skin and subcutaneous tissue up to area of concern in the right breast. A colt was made with surgical scalpel. Under ultrasound guidance, a 12-gauge vacuum assisted biopsy gun device was used to obtain 7 core samples. Following this, a coil biopsy clip was left in lesion. The patient tolerated the procedure well without any immediate complication. The patient was kept in the radiology department for short stay after the procedure and then discharged home in stable condition. Postprocedure mammogram: The patient was transferred to mammography for physician ordered post procedure mammogram for clip placement verification. Post procedure mammogram demonstrates appropriate placement of clip. Impression: Successful, uncomplicated ultrasound guided core biopsy of area of concern in the right breast, full pathology results to follow. [facility], , 08/15/2024 9:17 AM. Pathology Results: Result: Benign, Fibrocystic change. Pathology and radiology were reviewed. Findings are concordant. RIGHT BREAST, EIGHT O'CLOCK, ULTRASOUND GUIDED NEEDLE CORE BIOPSY: Benign breast with fibrocystic changes and focal pseudoangiomatous stromal hyperplasia (PASH). Intraluminal calcium oxalate crystals are identified. Overall Assessment: Benign Assessment: MG diagnostic mammo RT wo CAD - Right: Benign, BI-RAD 2. Management: Diagnostic Mammogram of the right breast in 6 months. Electronically signed and approved by: Triston Harris DO
== END ==
LOC: RADUSWWP 07:09
PROVIDERS: ATTEND Surgery
DX: N64.89 Other specified disorders of breast (principal); R92.8 Other abnormal and inconclusive findings on diagnostic imaging of breast
CPT/HCPCS: 88305; 77065; 19083; A4648